=== PATIENT | female | born 1975 | race Caucasian/White ===

== ENCOUNTER 2019-11-02 14:42 | Outpatient (CLI) | payer OTHER, SELFPAY ==
--- NOTE | ~2019-11-02 | US_ITS ---
US abdomen complete EXAMINATION: US Abdomen Complete INDICATION: Epigastric pain PROCEDURE: Realtime High Resolution abdomen ultrasound. COMPARISON: No prior studies for comparison FINDINGS: Gallbladder within normal limits. No gallstones, pericholecystic fluid, gallbladder wall t hickening or biliary dilatation. Common bile duct measures 4 mm. Liver echotexture within normal limits without focal mass. Pancreas within normal limits. Pancreati c tail is obscured by bowel gas. Spleen is unremarkeable. Renal echotexture is within normal limits bilaterally without hydronephrosis, contour deforming mass or renal stone. Right kidney measures 8.5 cm. Left kidney measures 9.3 cm. Visualized aspects of the aorta and IVC are within normal limits. Portal vein is patent. No sonograph ic Samuel's sign indicated by the technologist. IMPRESSION: 1: Normal abdominal ultrasound. Reviewed, dictated and finalized at location A.
[2019-11-02 15:02] LABS: Basophils Percent Auto 0.5 % (0.2-1.2); Eosinophils Absolute Auto 0.2 K/mm3 (0-0.3); Eosinophils Percent Auto 2.8 % (0-4.4); Hematocrit 40.5 % (37.0-47.0); Hemoglobin 14.4 g/dL (12.0-15.0); Immature Granulocyte Absolute 0.03 K/mm3 (0.00-0.031); Immature Granulocyte Percent A 0.4 % (0-0.5); Lymphocytes Absolute Auto 1.85 K/mm3 (0.9-3.2); Mean Corpuscular HGB Conc 35.6 g/dl (32-36); Mean Corpuscular Hemoglobin 31.6 pg (26-34); Mean Platelet Volume 9.8 fl (7.4-10.4); Monocytes Absolute Auto 0.5 K/mm3 (0.1-0.6); Monocytes Percent Auto 6.4 % (2.6-8.5); Neutrophils Absolute Auto 4.8 K/mm3 (1.3-6.7); Neutrophils Percent Auto 64.9 % (45.5-73.1); Platelet Count Result 259 k/mm3 (150-375); Red Blood Count 4.55 M/mm3 (4.2-5.4); Red Cell Distribution Width 12.4 % (11.5-14.5); White Blood Count 7.4 K/mm3 (4.5-10.0)
[2019-11-02 15:15] LABS: Alanine Aminotransferase 19 U/L (4-35); Albumin Level 4.5 g/dL (3.5-5.1); Alkaline Phosphatase 56 U/L (38-126); Amylase 91 U/L (30-110); Aspartate Amino Transferase 27 U/L (14-36); Bilirubin,Total 0.4 mg/dL (0.2-1.3); Blood Urea Nitrogen 7 mg/dL (7-17); Calcium 8.9 mg/dL (8.4-10.2); Carbon Dioxide 28 mmol/L (22-30); Chloride 101 mmol/L (98-107); Estimated Glomerular Filt Rate > 60; Glucose 91 mg/dL (65-105); Lipase 108 U/L (23-300); Potassium 3.8 mmol/L (3.4-5.0); Sodium 137 mmol/L (137-145)
== END 2019-11-02 14:43 | disposition home or self-care (01) ==
PROVIDERS: PCP Internal Medicine; Visit Provider Internal Medicine
DX: R10.9 Unspecified abdominal pain (principal)
CPT/HCPCS: 36415; 76700; 80053; 82150; 83690; 85025

== ENCOUNTER → 2020-06-08 11:41 | Outpatient (CLI) | payer OTHER, SELFPAY ==
--- NOTE | ~2020-06-08 | MM_ITS ---
EXAMINATION: MM screening [facility] BI w hailey HISTORY: Screening mammogram TECHNIQUE: Craniocaudal and mediolateral oblique 3-D tomosynthesis images were obtained and synthetic 2-D images were generated. CAD analysis was submitted and interpreted. COMPARISON: 06/05/2017 BREAST PARENCHYMAL COMPOSITION: There are scattered areas of fibroglandular density. FINDINGS: RIGHT BREAST: A focal asymmetry is present in the middle third of the lower inner breast. There is al so an asymmetry in the middle third of the outer breast on the craniocaudal view. LEFT BREAST: Asymmetry in the middle third of the central breast on the craniocaudal view is slightly more prominent than on the comparison examination. IMPRESSION: 1. Bilateral breast findings as described above. 2. Additional mammographic views and possible breast ultrasound are recommended. BI-RADS Category 0: Incomplete: Needs additional imaging evaluation. Reviewed, dictated and finalized at location A. ESS COACH IMPRESSION: 1. Bilateral breast findings as described above. 2. Additional mammographic views and possible breast ultrasound are recommended . BI-RADS Category 0: Incomplete: Needs additional imaging evaluation.
== END ==
PROVIDERS: Visit Provider Obstetrics & Gynecology
DX: Z12.31 Encounter for screening mammogram for malignant neoplasm of breast (principal); R92.8 Other abnormal and inconclusive findings on diagnostic imaging of breast
CPT/HCPCS: 77063; 77067

== ENCOUNTER → 2020-07-01 08:23 | Outpatient (CLI) | payer OTHER, SELFPAY ==
--- NOTE | ~2020-07-01 | MMUS_ITS ---
EXAMINATION: MM diagnostic mammo BI, US breast BI complete HISTORY: Follow-up breast asymmetries TECHNIQUE: Additional 3-D tomosynthesis images of the breasts were performed and synthetic 2-D images were generated. CAD analysis was submitted and interpreted. High resolution bilateral breast ultraso und was performed. COMPARISON: Comparison to multiple prior studies sequentially, with oldest reviewed study dated 05/22. BREAST PARENCHYMAL COMPOSITION: Breast composed of scattered areas of fibroglandular density. FINDINGS: MAMMOGRAPHIC FINDINGS: Bilateral breast asymmetries are less apparent/dense with compression views, most likely superimposed fibroglandular tissue. No discrete mass or architectural distortion. No suspicious calcifications. ULTRASOUND: High-resolution complete bilateral breast ultrasound including all 4 quadrants in the subareolar loca tions demonstrate normal heterogeneous echotexture in the right breast. There is a 3 mm simple cyst i n the left breast at 6:00. No suspicious masses to suggest malignancy. IMPRESSION: 1. No evidence for malignancy in either breast. Right breast asymmetry lateral aspect of the right br east is likely superimposed fibroglandular tissue. 2. Recommend 6 month follow-up diagnostic right mammogram BI-RADS category 3, probably benign findings. Reviewed, dictated and finalized at location A. MASSEUR IMPRESSION: 1. No evidence for malignancy in either breast. Right breast asymmetry lateral aspect of the right breast is likely superimposed fibroglandular tissue. 2. Recommend 6 month follow-up diagnostic right mammogram BI-RADS category 3, probably benign findings.
== END ==
PROVIDERS: PCP Internal Medicine; Visit Provider Obstetrics & Gynecology
DX: R92.8 Other abnormal and inconclusive findings on diagnostic imaging of breast (principal)
CPT/HCPCS: 76641; 77066

== ENCOUNTER → 2021-01-06 07:58 | Outpatient (CLI) | payer OTHER, SELFPAY ==
--- NOTE | ~2021-01-06 | MMUS_ITS ---
EXAMINATION: MM diagnostic willie RT w hailey, US breast RT limited HISTORY: Six-month follow-up for probably benign right breast asymmetry TECHNIQUE: Craniocaudal, mediolateral, and mediolateral oblique 3-D tomosynthesis images of the right breast were performed and synthetic 2-D images were generated. CAD analysis was submitted and interp reted. High resolution limited right breast ultrasound was performed. COMPARISON: 07/01/2020, 06/08/2020, 06/05/2017 BREAST PARENCHYMAL COMPOSITION: The breasts are almost entirely fatty. FINDINGS: MAMMOGRAPHIC FINDINGS: A stable asymmetry is present in the middle/posterior third of the lower-outer right breast 7 cm from the nipple. There has been no suspicious interval change. No suspicious calcification or architectur al distortion are identified. ULTRASOUND: There is no evidence of focal abnormal solid or cystic mass in the vicinity of the mammographic findi ng in question. IMPRESSION: 1. Stable, probably benign right breast asymmetry. 2. Recommend 6 month follow-up right diagnostic mammogram with possible ultrasound. BI-RADS category 3, probably benign findings. Reviewed, dictated and finalized at location A. IMPRESSION: 1. Stable, probably benign right breast asymmetry. 2. Recommend 6 month follow-up right diagnostic mammogram with possible ultraso und. BI-RADS category 3, probably benign findings.
== END ==
PROVIDERS: Visit Provider Obstetrics & Gynecology
DX: R92.8 Other abnormal and inconclusive findings on diagnostic imaging of breast (principal)
CPT/HCPCS: 76642; 77061; 77065; G0279

== ENCOUNTER → 2021-07-10 07:49 | Outpatient (CLI) | payer OTHER, SELFPAY ==
--- NOTE | ~2021-07-10 | MMUS_ITS ---
EXAMINATION: MM diagnostic willie BI w hailey, US breast LT limited HISTORY: Six-month for probably benign left breast asymmetry. TECHNIQUE: Craniocaudal, mediolateral, and mediolateral oblique 3-D tomosynthesis images of the breas ts were performed and synthetic 2-D images were generated. Spot compression views of the left breast are also obtained. CAD analysis was submitted and interpreted. High resolution limited left breast ul trasound was performed. COMPARISON: 01/06/2021, 07/01/2020, 06/08/2020, 06/05/2017 FINDINGS: MAMMOGRAPHIC FINDINGS: Right breast: There is no evidence of suspicious mass, calcification, or architectural distortion to suggest malignancy. There has been no suspicious interval change. Left breast: There is a stable asymmetry in the middle/posterior third of the central breast in line with the nipple axis V cm from the nipple. There has been no suspicious interval change. ULTRASOUND: There is a 5 mm round, circumscribed, hypoechoic mass with no posterior features or internal vascular ity at the 11:00 location 5 cm from the nipple. IMPRESSION: 1. Stable, probably benign left breast mass. 2. Given one year of interval stability, recommend 12 month followup diagnostic mammogram and targete d left breast ultrasound. BI-RADS category 3, probably benign findings. Reviewed, dictated and finalized at location A. NDITIONER IMPRESSION: 1. Stable, probably benign left breast mass. 2. Given one year of interval stability, recommend 12 month followup diagnostic mammogram and targeted left breast ultrasound. BI-RADS category 3, probably benign findings.
== END ==
PROVIDERS: Visit Provider Obstetrics & Gynecology
DX: N63.22 Unspecified lump in the left breast, upper inner quadrant (principal)
CPT/HCPCS: 76642; 77062; 77066; G0279

== ENCOUNTER → 2021-09-25 08:18 | Outpatient (CLI) | payer OTHER, SELFPAY ==
--- NOTE | ~2021-09-25 | US_ITS ---
EXAMINATION: US pelvic complete w TV DATE: 09/25/2021 08:52 INDICATION: Menopausal and female climacteric states TECHNIQUE: Multiple transabdominal and endovaginal sonographic images of the pelvis were obtained. COMPARISON: 06/05/2017 FINDINGS: The uterus measures 8.9 x 5.0 x 5.5 cm. There are multiple isoechoic masses of the uterus w ith the appearance of intramural fibroids. The largest measures 2.7 x 2.0 x 2.5 cm. The endometrial c omplex measures 6 mm. The right ovary measures 1.5 x 1.1 x 2.0 cm. The left ovary measures 2.2 x 2.1 x 1.5 cm. There is normal vascular flow in the ovaries. There is no free fluid in the pelvis. IMPRESSION: 1. Uterine fibroids measuring up to 2.7 cm. Reviewed, dictated and finalized at location B. LEADER/CONTROL ROOM OPERATOR
== END ==
PROVIDERS: Visit Provider Nurse Practitioner Family
DX: N92.4 Excessive bleeding in the premenopausal period (principal); D25.9 Leiomyoma of uterus, unspecified
CPT/HCPCS: 76830; 76856

== ENCOUNTER 2021-11-03 06:38 | Outpatient (CLI) | payer OTHER, SELFPAY ==
--- NOTE | ~2021-11-03 | MR_ITS ---
EXAMINATION: MR pituitary wo/w con DATE: 11/03/2021 07:58 INDICATION: Other specified abnormal findings on blood chemistry. TECHNIQUE: Multisequence magnetic resonance imaging (MRI) of the brain and brainstem was performed wi thout and with 16 mL MultiHance intravenous contrast. COMPARISON: None. FINDINGS: The pituitary is normal in size with height of 9 mm and concave superior margin. There is n o intracranial hemorrhage, acute infarction, or abnormal intracranial mass lesion. The ventricles are normal in size. The orbits are normal. The mastoid air cells are normal. There is near complete opac ification of the left maxillary sinus, left frontal sinus, and anterior left ethmoid air cells. IMPRESSION: 1. Normal brain. Normal pituitary. Reviewed, dictated and finalized at location A.
[2021-11-03 07:13] LABS: Estimated Glomerular Filt Rate > 60
== END 2021-11-03 06:39 | disposition home or self-care (01) ==
PROVIDERS: PCP Internal Medicine; Visit Provider Internal Medicine
DX: R79.89 Other specified abnormal findings of blood chemistry (principal)
CPT/HCPCS: 70553; A9577

== ENCOUNTER → 2022-09-27 08:26 | Outpatient (CLI) | payer OTHER, SELFPAY ==
--- NOTE | ~2022-09-27 | MMUS_ITS ---
EXAMINATION: MM diagnostic willie BI w hailey, US breast LT limited HISTORY: Follow-up for probably benign left breast asymmetry TECHNIQUE: Craniocaudal, mediolateral, and mediolateral oblique 3-D tomosynthesis images of the breas ts were performed and synthetic 2-D images were generated. CAD analysis was submitted and interpreted . High resolution limited left breast ultrasound was performed. COMPARISON: 07/10/2021, 01/06/2021, 07/01/2020, 06/08/2020 BREAST PARENCHYMAL COMPOSITION: There are scattered areas of fibroglandular density. FINDINGS: MAMMOGRAPHIC FINDINGS: Again seen is a stable asymmetry in the middle/posterior third of the central left breast which dispe rses with spot compression. There has been no suspicious interval change. No suspicious mass, calcifi cation, or architectural distortion are identified in either breast to suggest malignancy. ULTRASOUND: There is no evidence of focal abnormal solid or cystic mass in the vicinity of the mammographic findi ng in question in the left breast. IMPRESSION: 1. No mammographic or sonographic evidence of malignancy. 2. Recommend routine screening mammography in one year. BI-RADS Category 2: Benign finding(s). Reviewed, dictated and finalized at location A. IN SORTER IMPRESSION: 1. No mammographic or sonographic evidence of malignancy. 2. Recommend routine screening mammography in one year. BI-RADS Category 2: Benign finding(s).
== END ==
PROVIDERS: PCP Internal Medicine; Visit Provider Obstetrics & Gynecology
DX: R92.8 Other abnormal and inconclusive findings on diagnostic imaging of breast (principal)
CPT/HCPCS: 76642; 77062; 77066; G0279

== ENCOUNTER 2024-02-10 15:44 | Outpatient (CLI) | payer OTHER, SELFPAY ==
--- NOTE | ~2024-02-10 | MM_ITS ---
EXAMINATION: MM screening willie BI w hailey HISTORY: Screening TECHNIQUE: Craniocaudal and mediolateral oblique 3-D tomosynthesis images were obtained and synthetic 2-D images were generated. CAD analysis was submitted and interpreted. COMPARISON: Comparison to multiple prior studies sequentially, with oldest reviewed study dated 05/22. BREAST PARENCHYMAL COMPOSITION: Not dense: There are scattered areas of fibroglandular density. FINDINGS: There is no evidence of suspicious mass, calcification, or architectural distortion to sugg est malignancy in either breast. There has been no suspicious interval change. IMPRESSION: 1. No mammographic evidence of malignancy. 2. Recommend routine screening mammography in one year. BI-RADS Category 1: Negative Reviewed, dictated and finalized at location B.
== END 2024-02-10 15:45 ==
LOC: MICIMG 15:45
PROVIDERS: PCP Obstetrics & Gynecology; Visit Provider Obstetrics & Gynecology
DX: Z12.31 Encounter for screening mammogram for malignant neoplasm of breast (principal)
CPT/HCPCS: 77063; 77067

== ENCOUNTER 2024-11-23 08:04 | Outpatient (CLI) | payer OTHER, SELFPAY ==
--- OUTSIDE RECORDS SUMMARY | 2024-11-23 08:15 | XMS_ITS | Clinical Summary ---
Author Organization [facility] Address [address] [place] [address] Care Team Providers Care University Demonstrator Name Role Phone Marleny Prince Primary Care Provider [phone] Source Comments [facility],non-owned Affiliates and Associated Physician Practices is amultiple site organization consisting of ambulatory clinics and hospital sitesin [place], [place], [place] and [place]. This disclosure is being madepursuant to the Care Everywhere program and may not contain all information available regarding this patient. Last updated 18.[facility] Allergies Active Allergy Reactions Criticality Noted Date Comments Ibuprofen Swelling 08/13/2016 Medications * Be aware that medications may not be up to date on this document. Alwaysverify current medications with the patient. No known medications Active Problems No known active problems Social History Tobacco Use Types Packs/Day Years Used Date Smoking Tobacco: Never Comments Unknown Sex and Gender Information Value Date Recorded Sex Assigned at Not on file Legal Sex Female 6:40 AM C WEB DEVELOPER Gender Identity Not on file Sexual Orientation Not on file Last Filed Vital Signs Vital Sign Reading Time Taken Comments Blood Pressure 100/60 08/13/2016 8:31 AM C WEB DEVELOPER Pulse 74 08/13/2016 8:31 AM C WEB DEVELOPER Temperature 36.8 C (98.3 F) 08/13/2016 8:31 AM C WEB DEVELOPER Respiratory Rate 18 08/13/2016 8:31 AM C WEB DEVELOPER Oxygen Saturation 98% 08/13/2016 8:31 AM C WEB DEVELOPER Inhaled Oxygen Concentration - - Weight 71.7 kg (158 lb) 08/13/2016 8:31 AM C WEB DEVELOPER Height 162.6 cm (5' 4 ) 08/13/2016 8:31 AM C WEB DEVELOPER Body Mass Index 27.12 08/13/2016 8:31 AM C WEB DEVELOPER Plan of Treatment Health Maintenance Due Date Last Done Comments COLOGUARD (AGES 45-75) - COL ON CA SCREENING 1973 COLON MONITORING 1973 COLONOSCOPY - COLON CA SCREENING 1973 CT COLONOGRAPHY - COLON CA SCREENING 1973 Colorectal Cancer Screening 1973 FIT - COLON CA SCREENING 1973 FLEX SIG - COLON CA SCREENING 1973 LIPID TESTING 1973 MAMMOGRAM 1973 HIV SCREENING 1988 HEPATITIS C SCREENING 07/13/1991 DTAP/TDAP/TD VACCINES (1 - Tdap) 1992 HEPATITIS B VACCINE (1 of 3 - 19+ 3-dose series) 1992 PNEUMOCOCCAL VACCINE 50+ (1 of 1 - PCV) 2023 ZOSTER VACCINE (1 of 2) 2023 COVID-19 VACCINE (1 - 2023-2 5 season) 2024 DEPRESSION SCREENING 07/22/2024 INFLUENZA VACCINE (Season Ended) 2025 HIB VACCINE Aged Out No longer eligi ble based on patient's age to complete this topic HPV VACCINE Aged Out No longer eligi ble based on patient's age to complete this topic MENINGOCOCCAL (Group B) VACC INE SHARED DECISION-MAKING Aged Out No longer eligibl e based on patient's age to complete this topic MENINGOCOCCAL GROUPS A/C/Y/W VACCINE Aged Out No longer eligible b ased on patient's age to complete this topic [place] [address] [address] Care Teams University Demonstrator Relationship Specialty Start Date End Date Marleny Prince DO [address] [place] [phone] PCP - General Family Medicine 08/13/16
--- OUTSIDE RECORDS SUMMARY | 2024-11-23 08:15 | XMS_ITS | Clinical Summary ---
Author Organization [address] Address [address] [place] [id number] Care Team Providers Care Auxiliary Equipment Tender Name Role Phone Mackenzie Cotto NP Primary Care Provider [phone] Allergies Active Allergy Reactions Criticality Noted Date Comments Erythromycin Other (See comments) Reaction: chest pain, Ibuprofen Angioedema,Swelling Medium 08/13/2016 Reaction: facial swelling, Medications EPINEPHrine 0.3 mg/0.3 mL auto-injection syringeIndicati ons:Anaphylaxis Inject 0.3 mL (0.3 mg total) into the muscle as instructed as needed for anaphylaxis. 1 Syringe 3 8 Active Active Problems Problem Noted Date Diagnosed Date Hyperkalemia 03/07/2018 Abnormal result of iron profile testing 03/07/20 18 Elevated LDL cholesterol level 03/07/2018 Allergy to nonsteroidal anti-inflammatory drug ( NSAID) 01/24/2018 Resolved Problems Problem Noted Date Diagnosed Date Resolved Date Acute maxillary sinusitis 10/25/2015 Overview (10/25/2016): Acute maxillary sinusitis, recurrence not specified Immunizations Immunization Administration Dates Next Due Influenza, Unspecified 04/21/2017 Surgical History Surgery Date Site/Laterality Comments OTHER SURGICAL HISTORY D&C DILATION AND CURETTAGE OF UTERUS Medical History Medical History Date Comments Hx Other Medical Allergies, seas onal; Comments: DNT 01/27/2014 - Family History Medical History Relation Name Comments Diabetes type II Father Diabetes me llitus type 2; Hypertension Father Hypertension; Diabetes type II Mother Diabetes me llitus type 2; Hypertension Mother Hypertension; Relation Name Status Comments Father Mother Social History Tobacco Use Types Packs/Day Years Used Date Smoking Tobacco: Never Smokeless Tobacco: Never Alcohol Use Standard Drinks/Week Comments No 0 (1 standard drink = 0.6 oz pur e alcohol) Personal Safety Answer Date Recorded Getting School Help Needed Not on file 10/04 Comments Unknown Sex and Gender Information Value Date Recorded Sex Assigned at Not on file 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 Gender Identity Not on file Sexual Orientation Not on file Obstetrics History Last Filed Vital Signs Vital Sign Reading Time Taken Comments Blood Pressure 117/77 01/24/2018 11:28 AM CDT Pulse 67 01/24/2018 11:28 AM CDT Temperature 36.9 C (98.5 F) 12/18/2017 2:42 PM CDT Respiratory Rate 14 01/24/2018 11:28 AM CDT Oxygen Saturation 98% 01/24/2018 11:28 AM CDT Inhaled Oxygen Concentration - - Weight 73.7 kg (162 lb 8 oz) 01/24/2018 11:28 AM CDT Height 162.6 cm (5' 4 ) 01/24/2018 11:28 AM CDT Body Mass Index 27.89 01/24/2018 11:28 AM CDT Plan of Treatment Not on file Insurance [facility] CHOICE PLUS [facility] Care Teams Auxiliary Equipment Tender Relationship Specialty Start Date End Date Mackenzie Cotto NP [address] [facility] [address] [place] [address] PCP - General Family Medicine 01/24/18
--- OUTSIDE RECORDS SUMMARY | 2024-11-23 08:15 | XMS_ITS | Referral Summary ---
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
[2024-11-23 08:38] LABS: Hematocrit 44.7 % (37.0-47.0); Hemoglobin 15.1 g/dL (12.0-15.0)
== END 2024-11-23 08:05 | disposition home or self-care (01) ==
PROVIDERS: PCP Internal Medicine; Visit Provider Obstetrics & Gynecology
DX: N92.6 Irregular menstruation, unspecified (principal)
CPT/HCPCS: 36415; 85014; 85018

== ENCOUNTER 2024-11-27 00:16 | Day surgery (SDC) | payer OTHER, SELFPAY ==
[2024-11-18 08:13] VITALS: BMI 33.0
--- NOTE | 2024-11-18 08:21 | PC.NURSE ---
Report to the Outpatient Waiting Room, entrance under the green pavilion located off [facility], at time _0930_ on date _[id number]_. Planned Procedure Time: _1130_.? Time changes happen often and if your time is changed the preop area will call you the afternoon before. - You and your visitor will be asked to self-screen and do not enter if you have any COVID symptoms. Please call surgeon if you need to reschedule. - A mask is optional within the hospital at this time. Patients may have clear liquids (water, carbonated beverages, clear teas, apple juice) until 3 hours prior to surgery with a maximum of 20 ounces. - No food from midnight until time of surgery and no smoking, or chewing tobacco (or any form of nicotine). No chewing gum, candy or mints. Take only the following medications with a SIP of water on the morning of surgery: __None___ DO NOT STOP ANY OF YOUR OTHER PRESCRIPTION MEDICATIONS PRIOR TO SURGERY EXCEPT THE FOLLOWING Hold all vitamins and supplements for 3 days per anesthesiologist. Medications to discontinue per physician Date to take last dose Please no make-up, nail cymro, hairspray, perfume, deodorant, or body powder the day of surgery.? No jewelry (including any body piercings) or valuables the day of surgery, leave them at home.? Please take a shower or bath the night before, or the morning of, surgery with an antibacterial soap.? Wear comfortable, loose fitting clothing. - Jewelry must be removed prior to entering the operating room.? Rings and piercings that are not removed may be cut off. - The hospital will not accept responsibility for valuables.? - Please leave all valuables, including medications, at home the day of surgery. If you are going home after surgery, a licensed cdl company driver must drive you home.? - NO public transportation without another adult if you receive anesthesia. - We recommend that an adult stay with you for 24 hours following discharge. - We also recommend that you do not drive, make important decision, drink alcoholic beverages, or take any drugs that were not prescribed by your health care provider for at least 24 hours after your discharge time. Follow any additional instructions given to you from your surgeon. Telephone instructions given to __Tera__and asked if any additional questions and then verbalized understanding. Patient advised to call surgeon office or pre surgery nurse liaison [phone] if any additional questions.
--- NOTE | 2024-11-24 12:32 | PM.IMHP ---
H&P: HPI History of Present Illness Date/Time: 11/24/24 12:32 Chief Complaint: Thickened endometrium imaging Narrative: This is a 49-year-old female with thickened endometrium seen on ultrasound. She is cystectomy for control ultrasound showed thickened endometrium she will undergo hysteroscopy/dilatation curettage. Risks and benefits reviewed including but not exclusive of , aspiration pneumonia, bleeding, transfusion, perforation injury to bowel, bladder, ureters, or other internal organs with need for open laparotomy. She received the ACOG handout entitled hysteroscopy as well as dilatation curettage respectively. She had all questions answered. She asked to proceed Review of Systems Review of Systems: All systems reviewed & are unremarkable except as noted in HPI and below PMFSH Past Medical History Medical History Retinoschisis of left eye BMI 33.0-33.9,adult Elevated glucose Chronic right shoulder pain Blood donor BMI 30.0-30.9,adult BMI 27.0-27.9,adult Hypersomnolence BMI 32.0-32.9,adult Elevated prolactin level Follow up Hyperlipidemia Colon cancer screening Breast cancer screening On termite control technician drug therapy BMI 31.0-31.9,adult Encounter for routine adult health examination without abnormal findings Abnormal mammogram of right breast Vaginal delivery x 2 Heart murmur Encounter for preventive health examination Surgical History Surgical History History of dilation and curettage Family History Family History Father Hypertension Family history of elevated blood lipids Mother Hypertension Family history of elevated blood lipids Family history of diabetes mellitus in first degree relative Grandparent Family history of malignant neoplasm of cervix Diabetes mellitus Social History Social History Smoking status: Never smoker Second hand tobacco smoke exposure: No Alcohol intake: current Lack of Transportation: No Lack of Food: Never True Current Housing: I Have Housing Concerned About Future Housing: No Difficulty Paying Gas/Electric Bills: No Difficulty Paying for Meds: No Currently Unemployed: No Education: Bachelor's Degree Difficulty w/ Childcare or Family Care: No Living arrangements: with family Gender identity (if verbalized by the patient): Female Spiritual care concerns: No Meds Home Medications and Allergies Home Medications ?Medication ?Instructions ?Recorded ?Confirmed ?Type rosuvastatin 20 mg tablet See Rx Instructions .Route 05/22/22 11/18/24 Rx .COMPLEX #90 tabs testosterone 50 mg implant pellet 50 mg implant MONTHLY 03/05/24 11/18/24 History Fish oil 1,000 units BYMOUTH DAILY 11/03/24 11/18/24 History Metabolic Health 2 cap BYMOUTH DAILY 11/03/24 11/18/24 History tirzepatide (weight loss) 2.5 2.5 mg (0.5 mL) subcut WEEKLY 4 11/16/24 11/18/24 Rx mg/0.5 mL subcutaneous solution weeks #2 mL (Zepbound) Allergies Allergy/AdvReac Type Severity Reaction Status Date / Time ibuprofen Allergy Intermediate Rash Verified 11/18/24 08:10 erythromycin base Allergy Mild CHEST Verified 11/18/24 08:10 TIGHTNESS Exam Const: General: cooperative, healthy appearing and comfortable Nutritional Appearance: overweight Orientation/consciousness: oriented to person, oriented to place and oriented to time HENMT: Head: normal to inspection Resp: Effort & Inspection: normal respiratory effort Cardio: Rate: regular rate Rhythm: regular rhythm Heart sounds: S1 normal heart sound present and S2 normal heart sound present GI: Inspection: normal to inspection : External Female Exam: normal external appearance Speculum Exam - Vagina: normal appearance of the vagina Speculum Exam - Cervix: normal appearance of the cervix Bimanual exam- vagina & uterus: soft Bimanual Exam- Adnexa, other: normal adnexae Assessment and Plan Assessment and plan (1) Thickened endometrium: Code(s): R93.89 - Abnormal findings on diagnostic imaging of other specified body structures Status: Acute Plan Proceed with hysteroscopy/dilatation and curettage
--- OUTSIDE RECORDS SUMMARY | 2024-11-27 00:21 | XMS_ITS | Clinical Summary ---
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
--- OUTSIDE RECORDS SUMMARY | 2024-11-27 00:21 | XMS_ITS | Referral Summary ---
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
--- OUTSIDE RECORDS SUMMARY | 2024-11-27 00:21 | XMS_ITS | Clinical Summary ---
Author Organization [facility] [employer] Address [address] [facility] [place] [address] Care Team Providers Care Velvet Weaver Name Role Phone Marleny Prince Primary Care Provider [phone] Source Comments [facility] [employer],non-owned Affiliates and Associated Physician Practices is amultiple site organization consisting of ambulatory clinics and hospital sitesin [place], [place], [place] and [place]. This disclosure is being madepursuant to the Care Everywhere program and may not contain all information available regarding this patient. 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 Gender Identity Not on file Sexual Orientation Not on file Last Filed Vital Signs Vital Sign Reading Time Taken Comments Blood Pressure 100/60 08/13/2016 8:31 AM WASH HELPER Pulse 74 08/13/2016 8:31 AM WASH HELPER Temperature 36.8 C (98.3 F) 08/13/2016 8:31 AM WASH HELPER Respiratory Rate 18 08/13/2016 8:31 AM WASH HELPER Oxygen Saturation 98% 08/13/2016 8:31 AM WASH HELPER Inhaled Oxygen Concentration - - Weight 71.7 kg (158 lb) 08/13/2016 8:31 AM WASH HELPER Height 162.6 cm (5' 4 ) 08/13/2016 8:31 AM WASH HELPER Body Mass Index 27.12 08/13/2016 8:31 AM WASH HELPER Plan of Treatment Health Maintenance Due Date [...] patient's age to complete this topic [place] [address] [place] [address] Care Teams Velvet Weaver Relationship Specialty Start Date End Date Marleny Prince DO [address] [facility] [place] [id number] PCP - General Family Medicine 08/13/16
--- OUTSIDE RECORDS SUMMARY | 2024-11-27 00:21 | XMS_ITS | Continuity of Care Document ---
Author Organization [employer] [facility] Address [address] [place] [address] [address] [place] [address] Phone Care Team Providers Care Still Cleaner Tube Name Role Phone Donnell Pagan PT Unavailable Unavailable Procedures Procedure Date Therapeutic Activities Neuromuscular Re-Ed Therapeutic Exercise Therapeutic Activities Neuromuscular Re-Ed Therapeutic Exercise Hot or Cold Pack Therapeutic Activities Neuromuscular Re-Ed Therapeutic Exercise Therapeutic Activities Neuromuscular Re-Ed Therapeutic Exercise Therapeutic Activities Neuromuscular Re-Ed Therapeutic Exercise Therapeutic Activities Neuromuscular Re-Ed Therapeutic Exercise Progress Note Therapeutic Activities Neuromuscular Re-Ed Therapeutic Exercise Therapeutic Activities Neuromuscular Re-Ed Therapeutic Exercise Therapeutic Activities Neuromuscular Re-Ed Therapeutic Exercise Hot or Cold Pack Therapeutic Activities Neuromuscular Re-Ed Therapeutic Exercise Hot or Cold Pack Therapeutic Activities Neuromuscular Re-Ed Therapeutic Exercise Hot or Cold Pack Therapeutic Activities Neuromuscular Re-Ed Therapeutic Exercise Hot or Cold Pack Therapeutic Activities Neuromuscular Re-Ed Therapeutic Exercise Hot or Cold Pack Therapeutic Activities Neuromuscular Re-Ed Therapeutic Exercise Manual Therapy Hot or Cold Pack Progress Note Therapeutic Activities Neuromuscular Re-Ed Therapeutic Exercise Hot or Cold Pack Therapeutic Activities Neuromuscular Re-Ed Therapeutic Exercise Hot or Cold Pack Therapeutic Activities Neuromuscular Re-Ed Therapeutic Exercise Hot or Cold Pack Therapeutic Activities Neuromuscular Re-Ed Therapeutic Exercise Therapeutic Activities Neuromuscular Re-Ed Therapeutic Exercise Therapeutic Activities Neuromuscular Re-Ed Therapeutic Exercise Hot or Cold Pack Manual Therapy Therapeutic Activities Neuromuscular Re-Ed Therapeutic Exercise Manual Therapy Hot or Cold Pack Therapeutic Activities Neuromuscular Re-Ed Therapeutic Exercise Hot or Cold Pack Manual Therapy Therapeutic Activities Neuromuscular Re-Ed Therapeutic Exercise Manual Therapy Hot or Cold Pack Therapeutic Activities Neuromuscular Re-Ed Therapeutic Exercise Manual Therapy Hot or Cold Pack Therapeutic Activities Neuromuscular Re-Ed Manual Therapy Therapeutic Exercise Hot or Cold Pack PT Evaluation Moderate Complexity Therapeutic Activities Therapeutic Exercise Manual Therapy Advance Directives Directive Yes / No Effective Date File Name No Information Encounters Encounter Description Practice Location Reason(s) For Visit Diagnoses Date Provider Providers Copied on Encounter [facility] [address] [facility] [address], [place], [place], [id number], tel:[phone] [place] No Information Ej Jacobo. . Referring Provider: Marc Herrmann [address] [place] [address] [address], [place], [place], [facility]. tel:[phone] [place] [address] [facility] [employer] [address], [place], [place], [id number], tel:[phone] [place] No Information Angelita Nino. . Referring Provider: Marc Herrmann [address] [place] [address] [address], [place], [address]. tel:[phone] [employer] [address], [place], [place], [id number], tel:[phone] [place] No Information Rob Vogel. [address], [address], [place], [place], [facility], [place]. tel:[phone] Referring Provider: Yefri Reyez [facility] [address], [place], [address]. tel:[phone] [facility] [address] [employer] [address], [place], [place], [id number], tel:[phone] [place] No Information Rob Vogel. [address], [address], [place], [address], [place]. tel:[phone] Referring Provider: Marc Herrmann [facility] [address], [place], [address]. tel:[phone] [address], [place], [place], [id number], [place] tel:[phone] [place] No Information Rob Vogel. [address], [address], [place], [place], [facility], [place]. tel:[phone] Referring Provider: Marc Herrmann [facility] [address], [place], [address]. tel:[phone] [place], [place] [address], [place], [place], [id number], [place] tel:[phone] [place] No Information Rob Vogel. [address] [place] [address], [address], [place], [place], [facility], [place]. tel:[phone] Referring Provider: Yefri Reyez [address], [place], [address]. tel:[phone] [address], [place], [place], [id number], [place] tel:[phone] [place] No Information Gustavo Sheth. . Referring Provider: Marc Herrmann [facility] [address], [place], [address]. tel:[phone] [address], [place], [place], [id number], tel:[phone] [place] No Information Rob Vogel. [address], [address], [place], [address], [place]. tel:[phone] Referring Provider: Yefri Reyez [address], [place], [facility]. tel:[phone] [facility] [address] [place], [place] [address], [place], [place], [id number], tel:[phone] [place] No Information Rob Vogel. [address], [address] [address], . tel:[phone] Referring Provider: Marc Herrmann, [address] [place] [address] [address] [facility] [address], [place], [facility]. tel:[phone] [facility] [address] [place], [place] [address], [place], [place], [id number], tel:[phone] [place] No Information Gustavo Sewon. . Referring Provider: Marc Herrmann [address] [place] [address] [address] [facility] [address], [place], [facility]. tel:[phone] [facility] [address] [place], [place] [address], [place], [place], [id number], tel:[phone] [place] No Information Rob Vogel. [address], [address], [place], [facility], . tel:[phone] Referring Provider: Marc Herrmann [address] [place] [address] [address] [facility] [address], [place], [facility]. tel:[phone] [address], [place], [place], [id number], [place] tel:[phone] [place] No Information Gustavo Sewon. . Referring Provider: Marc Herrmann [address] [place] [address] [address] [facility] [address], [place], [facility]. tel:[phone] [facility] [address] [facility], [place], [place], [id number], tel:[phone] [place] No Information Gustavo Sewon. . Referring Provider: Yefri Reye[address], [place], [facility]. tel:[phone] [address], [place], [place], [id number], tel:[phone] [place] No Information Rob Vogel. [address], [address], [place], [place], [facility], [place]. tel:[phone] Referring Provider: Marc Herrmann, [address] [place] [address] [address], [place], [facility]. tel:[phone], [place], [place], [id number], tel:[phone] [place] No Information Gustavo Sewon. . Referring Provider: Marc Herrmann [address] [place] [address] [address] [facility] [address], [place], [facility]. tel:[phone], [place], [place], [id number], [place] tel:[phone] [place] No Information Gustavo Sewon. . Referring Provider: Marc Herrmann [address] [place] [address] [address] [facility] [address], [place], [facility]. tel:[phone], [place], [place], [id number], tel:[phone] [place] No Information Rob Vogel. [address], [address], [place], [facility], . tel:[phone] Referring Provider: Marc Herrmann [address] [place] [address] [address] [facility] [address], [place], [facility]. tel:[phone] [facility] [address] [place], [place] [address], [place], [place], [id number], tel:[phone] [place] No Information Gustavo Sewon. . Referring Provider: Marc Herrmann, [address] [place] [address] [address], [place], [address]. tel:[phone] [address], [place], [place], [id number], tel:[phone] [place] No Information Pastor Goodwin. . Referring Provider: Marc Herrmann [address] [place] [address] [address], [place], [facility]. tel:[phone] [address], [place], [place], [id number], [place] tel:[phone] [place] No Information Rob Vogel. [address], [address], [place], [facility], . tel:[phone] Referring Provider: Marc Herrmann [address] [place] [address] [address], [place], [facility]. tel:[phone] [facility] [address] [place], [place] [address], [place], [place], [id number], [place] tel:[phone] [place] No Information Gustavo Sheth. . Referring Provider: Marc Herrmann [address] [place] [address] [address], [place], [address]. tel:[phone], [place], [id number], [place] tel:[phone] [place] No Information Rob Vogel. [address], [address], [place], [place], [facility], . tel:[phone] Referring Provider: Marc Herrmann [address] [place] [address] [address], [place], [address]. tel:[phone] [facility] [address] [place], [place] [address], [place], [place], [id number], [place] tel:[phone] [place] No Information Rob Vogel. [address], [address], [place], [facility], . tel:[phone] Referring Provider: Marc Herrmann, [address] [place] [address], [facility]. tel:[phone], [place], [id number], tel:[phone] [place] No Information Gustavo Domenic. . Referring Provider: Marc Herrmann, [address] [place] [address], [facility]. tel:[phone], [id number], tel:[phone] [place] No Information Rob Vogel. [address], [address], [place], [facility], . tel:[phone] Referring Provider: Marc Herrmann, [address] [place] [address], [facility]. tel:[phone], [id number], tel:[phone] [place] No Information Angelita Nino. . Referring Provider: Marc Herrmann [address] [place] [address], [facility]. tel:[phone] Family History Family Member Type Diagnosis Age At Onset No Information Payers Payer name Insurance type Covered republican ID Marcya sueholden(s) [facility] CI [id number] Social History Type Description Quantity Date Captured Comments Sex Female Smoking Status No Information Chief Complaint And Reason For Visit No Information Reason For Referral Reason For Referral No Information History Of Present Illness Encounter Date Complaint History Of Prese nt Illness No Information Functional Status Date Functional Assessmen t No Information Instructions Date Instruction Additional Infor mation No Information Assessments Type Assessment Date No Information Patient Care Teams Name Effective Dates (start - stop) Status Members No Information
--- NOTE | 2024-11-27 04:56 | WPDHPUPDATE1 ---
History and Physical Update Update Date/Time: 11/27/24 04:56 History and Physical has been reviewed, including an updated exam of the patient. There are NO changes in the patient's condition. Risks, benefits, and alternatives have been discussed and questions answered. Patient agrees to proceed with procedure.
[2024-11-27 09:30] VITALS: BP 136/78; PULSE 72; RESP 18; TEMP 36.7; O2SAT 100
[2024-11-27] MEDS: ACETAMINOPHEN 500 MG TABLET 1000 MG PO (09:44)
[2024-11-27] MEDS: LACTATED RINGERS 1,000 ML 30 ML IV CONT (09:50)
[2024-11-27 09:54] LABS: BEDSIDEPREGUCG Negative (Negative)
--- NOTE | 2024-11-27 10:33 | WPDANESEPPF ---
Anes - Initial Pre Proc Eval Procedure: Operation Date: 11/27/24 11:30 Proposed Procedures p Hysteroscopy Dilation and Curettage - Jaspreet Vyas MD Date/Time: 11/27/24 10:33 Surgeon: Jaspreet Vyas MD Pre Op Diagnosis: thickened endometrium Patient Data Age: 49 Gender: F Height: 1.63 m Weight: 88.95 kg Last Vital Signs Temp 98.1 F 11/27/24 09:30 Pulse 72 11/27/24 09:30 Resp 18 11/27/24 09:30 BP 136/78 11/27/24 09:30 Pulse Ox 100 11/27/24 09:30 O2 Del Method Room Air 11/27/24 09:30 Allergies Allergy/AdvReac Type Severity Reaction Status Date / Time ibuprofen Allergy Intermediate Rash Verified 11/27/24 09:34 erythromycin base Allergy Mild CHEST Verified 11/27/24 09:34 TIGHTNESS Home Medications ?Medication ?Instructions ?Recorded ?Confirmed ?Type rosuvastatin 20 mg tablet See Rx Instructions .Route 05/22/22 11/27/24 Rx .COMPLEX #90 tabs testosterone 50 mg implant pellet 50 mg implant MONTHLY 03/05/24 11/18/24 History [facility] 11/03/24 11/27/24 History Metabolic Health 2 cap BYMOUTH DAILY 11/03/24 11/27/24 History tirzepatide (weight loss) 2.5 2.5 mg (0.5 mL) subcut WEEKLY 4 11/16/24 11/18/24 Rx mg/0.5 mL subcutaneous solution weeks #2 mL (Zepbound) hydrocodone 5 mg-acetaminophen 325 1 tablet PO Q4H PRN pain #14 tabs 11/27/24 Rx mg tablet Laboratory Tests 11/27/24 09:40 POC Urine HCG, Qual Negative (Negative) Patient hx anesthesia problems: none Family hx anesthesia problems: none Results Review: All pre-operative results and documents have been reviewed as part of the pre-operative evaluation. [facility] Past Medical History Medical History Retinoschisis of left eye BMI 33.0-33.9,adult Elevated glucose Chronic right shoulder pain Blood donor BMI 30.0-30.9,adult BMI 27.0-27.9,adult Hypersomnolence BMI 32.0-32.9,adult Elevated prolactin level Follow up Hyperlipidemia Colon cancer screening Breast cancer screening On superintendent terminal drug therapy BMI 31.0-31.9,adult Encounter for routine adult health examination without abnormal findings Abnormal mammogram of right breast Vaginal delivery x 2 Heart murmur Encounter for preventive health examination Surgical History Surgical History History of dilation and curettage Family History Family History Father Hypertension Family history of elevated blood lipids Mother Hypertension Family history of elevated blood lipids Family history of diabetes mellitus in first degree relative Grandparent Family history of malignant neoplasm of cervix Diabetes mellitus Social History Social History Smoking status: Never smoker Second hand tobacco smoke exposure: No Alcohol intake: current Lack of Transportation: No Lack of Food: Never True Current Housing: I Have Housing Concerned About Future Housing: No Difficulty Paying Gas/Electric Bills: No Difficulty Paying for Meds: No Currently Unemployed: No Education: Bachelor's Degree Difficulty w/ Childcare or Family Care: No Living arrangements: with family Gender identity (if verbalized by the patient): Female Spiritual care concerns: No Anes - Eval Final PreProcedure Day of Procedure 11/27/24 10:33 Patient weight: obese Heart: regular rate and rhythm Lungs: clear to auscultation Airway: Mallampati scale class II Neurological: alert and oriented Last oral intake: >/= 8 hours ASA classification: II Emergent: no Anesthetic plan: proceed Anesthesia type and monitoring: general GIVS and standard monitoring Results Review: All pre-operative results and documents have been reviewed as part of the pre-operative evaluation. Informed Consent: The patient's anesthetic plan and its attendant risks and benefits were discussed with the patient/family/POA. Questions were solicited and answers provided to the satisfaction of the patient/family/POA.
[2024-11-27] MEDS: LIDOCAINE 1% LOCAL INJ 10 ML VIAL INFILTRATE (10:53)
--- NOTE | 2024-11-27 11:05 | P.OP_ITS ---
Procedure Note - Detailed Date of Procedure 11/27/24 Pre-op Diagnosis thickened endometrium Post-op Diagnosis Other (Thickened endometrium/uterine fibroid) Procedure Performed Hysteroscopy/myomectomy/dilatation curettage/ Surgeon Jaspreet Vyas MD Anesthesia MAC and Local Indications This is a patient with thickened endometrium on imaging Findings Submucosal fibroid was seen at the fundus Description of Procedure Patient was prepped draped in the normal sterile fashion placed in the dorsal lithotomy position. Under excellent IV sedation weighted speculum placed in posterior fornix vagina. Anterior lip of the cervix grasped with single-tooth tenaculum. 2.5cc 1% xylocaine anesthesia placed at 2, 4, 8, 10:00 a.m. of the cervix. Uterus sounded to7.5cm. Serial dilatation with fragmented dilators pe rformed followed by passage of the 5mm visualizing hysteroscope using normal saline as visualizing medium. Benign atrophic appearing endometrium was seen but there was a fibroid seen at the fundus. Using the small this was reticulated off until even with the surface of the uterine lining. The uterus was scraped over the entire 360? the instruments withdrawn. The patient went to recovery in satisfactory condition. All sponge, needle, instrument counts were correct. There were no immediate complications Estimated Blood Loss 5 Drains No Packing No Pathology Yes Complications No immediate complications Condition Stable Disposition PACU
[2024-11-27 11:10] VITALS: BP 114/93; PULSE 78; RESP 16; O2SAT 100
[2024-11-27 11:40] VITALS: BP 124/85; PULSE 76; RESP 16
--- NOTE | 2024-11-27 11:43 | SUR.PHASEII ---
1130 - up to recliner. peripad and mesh underwear on pt.
[2024-11-27 12:09] VITALS: BP 128/90; PULSE 70; RESP 16
== END 2024-11-27 12:12 | disposition home or self-care (01) ==
PROVIDERS: PCP Internal Medicine; Visit Provider Obstetrics & Gynecology
PROC: 0U5B8ZZ Destruction of Endometrium, Via Natural or Artificial Opening Endoscopic (ICD-10-PCS; CPT 58563; principal; 2024-11-27 11:30)
DX: R93.89 Abnormal findings on diagnostic imaging of other specified body structures (principal); D25.9 Leiomyoma of uterus, unspecified; E78.5 Hyperlipidemia, unspecified; G89.29 Other chronic pain; M25.511 Pain in right shoulder; G47.10 Hypersomnia, unspecified; R01.1 Cardiac murmur, unspecified; E66.9 Obesity, unspecified; Z68.33 Body mass index [BMI] 33.0-33.9, adult; Z79.899 Other long term (current) drug therapy; Z79.891 Long term (current) use of opiate analgesic; Z79.85 Long-term (current) use of injectable non-insulin antidiabetic drugs; Z98.890 Other specified postprocedural states; Z80.49 Family history of malignant neoplasm of other genital organs
CPT/HCPCS: 58561; 88305; A9270; J2003; J2250; J2704; J3010; J7120

== ENCOUNTER 2025-05-05 13:47 | Outpatient (CLI) | payer OTHER, SELFPAY ==
--- NOTE | ~2025-05-05 | MM_ITS ---
EXAMINATION: MM screening willei BI w hailey HISTORY: Screening TECHNIQUE: Craniocaudal and mediolateral oblique 3-D tomosynthesis images were obtained and synthetic 2-D images were generated. CAD analysis was submitted and interpreted. COMPARISON: 07/10/2021 BREAST PARENCHYMAL COMPOSITION: Not Dense: The breasts are almost entirely fatty. FINDINGS: There is no evidence of suspicious mass, calcification, or architectural distortion to suggest malignancy. There has been no suspicious interval change. IMPRESSION: 1. No mammographic evidence of malignancy. Recommend routine screening mammography in one year. BI-RADS Category 2: Benign finding(s) Reviewed, dictated and finalized at location Q. IMPRESSION: 1. No mammographic evidence of malignancy. Recommend routine screening mammogra phy in one year. BI-RADS Category 2: Benign finding(s)
== END 2025-05-05 13:48 | disposition home or self-care (01) ==
LOC: MICIMG 13:47
PROVIDERS: PCP Nurse Practitioner Family; Visit Provider Nurse Practitioner Family
DX: Z12.31 Encounter for screening mammogram for malignant neoplasm of breast (principal)
CPT/HCPCS: 77063; 77067